=== PATIENT | male | born 1990 | race Hispanic/Latino ===

== ENCOUNTER 2024-02-10 08:32 | Emergency (ER) | payer OTHER ==
[~2024-02-10] VITALS: Ht 167.6 cm; Wt 85.0 kg
[~2024-02-10 08:32] MED LIST: BACITRACIN15 GM TOP; CEPHALEXIN500 MG PO
[2024-02-10 09:10] VITALS: O2SAT 99
[2024-02-10] MEDS: TETANUS/DIPHTHERIA TOX ADULT 0.5 ML SYR IM ONE (09:19)
[2024-02-10] MEDS ORDERED: TETANUS/DIPHTHERIA TOX ADULT 0.5 ML SYR ONE (09:19)
== END 2024-02-10 09:20 | disposition home or self-care (01) ==
LOC: FSED 08:41
DX: Z48.02 Encounter for removal of sutures (principal); I10 Essential (primary) hypertension
CPT/HCPCS: 90471; 90714; 99282; S0630

== ENCOUNTER 2025-04-12 12:40 | Emergency (ER) | payer OTHER ==
[~2025-04-12] VITALS: Ht 167.6 cm; Wt 83.9 kg
[~2025-04-12 12:40] MED LIST changes: +AMOX TR-K CLV1 EAC2 PO; +HYDROCODON-ACE1 EAC9 PO
[2025-04-12 13:10] VITALS: PULSE 70; RESP 16; TEMP 98.8; O2SAT 98
[2025-04-12] MEDS ORDERED: CLEOCIN HCL300 MG PO (13:17)
[2025-04-12] MEDS ORDERED: LOTRIMIN AF12 GM TOP (13:17)
== END 2025-04-12 13:26 | disposition home or self-care (01) ==
LOC: FSED 12:45
DX: N50.9 Disorder of male genital organs, unspecified (principal); I10 Essential (primary) hypertension
CPT/HCPCS: 81003; 87491; 87591; 99283

== ENCOUNTER 2025-05-13 12:13 | Emergency (ER) | payer OTHER ==
[~2025-05-13] VITALS: Ht 167.6 cm; Wt 82.8 kg
[~2025-05-13 12:13] MED LIST changes: +CLEOCIN HCL300 MG PO; +LOTRIMIN AF12 GM TOP
[2025-05-13 12:20] VITALS: PULSE 56; RESP 20; TEMP 98.4; O2SAT 98
== END 2025-05-13 13:13 | disposition left against medical advice (07) ==
LOC: FSED 12:34
DX: Z11.3 Encounter for screening for infections with a predominantly sexual mode of transmission (principal)